=== PATIENT | female | born 1955 | race Two or more races ===

== ENCOUNTER 2025-06-22 15:43 | Emergency (ER) | payer OTHER ==
[~2025-06-22] VITALS: Ht 162.6 cm; Wt 83.9 kg
[2025-06-22] MEDS ORDERED: TOPROL XL25 M1 (17:05)
[2025-06-22] MEDS ORDERED: ROSUVASTATIN CAL5 MG (17:05)
[2025-06-22] MEDS ORDERED: KETOROLAC TROMETHAMINE 30 MG VIAL IM ONE (18:30)
[2025-06-22 19:46] LABS: BASO % 0.8 % (0.1-1.2); EOS # 0.14 (0.04-0.54); EOS % 1.6 % (0.7-7.0); LYMPH # 2.20 (1.18-3.74); LYMPH % 25.3 % (19.3-53.1); MEAN PLATELET VOLUME 9.90 fl (9.4-12.4); MONO # 0.69 (0.24-0.82); MONO % 7.9 % (4.7-12.5); NEUT # 5.57 (1.56-6.13); NEUT % 64.2 % (34.0-71.1); RED CELL DISTRIBUTION WIDTH 13.1 % (11.6-14.4)
[2025-06-22 19:47] LABS: URINE APPEARANCE Cloudy; URINE BILIRRUBIN Negative (NEGATIVE); URINE BLOOD Negative; URINE COLOR Yellow; URINE GLUCOSE Negative (NEGATIVE); URINE KETONE Trace (NEGATIVE); URINE LEUKOCYTE Small; URINE NITRATE Negative; URINE PROTEIN Trace (NEGATIVE); URINE UROBILINOGEN 1.0 E.U./dl
[2025-06-22 19:49] LABS: URINE BACTERIA 2981.8 uL (0.0-1933); URINE CAST 2.05 uL (0.0-1.40); URINE EPITHELIAL CELLS 53.3 uL (0.0-38.8); URINE RBC 4.5 uL (0.0-20.8); URINE WBC 59.6 uL (0.0-23.2)
[2025-06-22 20:05] LABS: BUN CREA RATIO 24.0 (7.0-25.0); CREATININE SERUM 1.07 mg/dL (0.55-1.02); GFR 50.69; GLUCOSE FASTING 74.0 mg/dL (65-100); OSMOLALITY SERUM 290.0 MOSM/KG (275-295)
[2025-06-22 20:08] LABS: URINE MUCUS SCANT
[2025-06-22 20:10] LABS: TYPE CELLS SQUAMOUS
== END 2025-06-22 20:46 | disposition home or self-care (01) ==
LOC: ER 15:43 → EDBD 16:42 → ER 16:42
PROVIDERS: General Practice
DX: N39.0 Urinary tract infection, site not specified (principal); M54.89 Other dorsalgia; N28.1 Cyst of kidney, acquired; I10 Essential (primary) hypertension
CPT/HCPCS: 36415; 74176; 96372; 99283; J1885